=== PATIENT | female | born 1950 | race Caucasian/White ===

== ENCOUNTER → 2018-04-09 | Outpatient (CLI) | payer OTHER ==
[~2018-04-09] MED LIST: AMLODIPINE BESY10 MG PO; COZAAR 50 MG TA50 M2 PO; FLEXERIL PO; TRAMADOL 50 MG50 MG PO
== END ==
LOC: M.RAD 10:00
DX: Z12.31 Encounter for screening mammogram for malignant neoplasm of breast (principal)

== ENCOUNTER 2020-07-26 22:08 | Emergency (ER) | payer MEDICARE ==
[~2020-07-26] VITALS: Ht 157.5 cm; Wt 102.1 kg
[2020-07-26] MEDS ORDERED: VOLTAREN GEL 1100 G1 TOP (23:38)
[2020-07-26] MEDS ORDERED: MELOXICAM15 MG PO (23:38)
[2020-07-26 23:50] VITALS: BP 180/92
== END 2020-07-26 23:50 | disposition home or self-care (01) ==
LOC: M.ERS 22:08
DX: M77.8 Other enthesopathies, not elsewhere classified (principal); M06.9 Rheumatoid arthritis, unspecified; Z91.040 Latex allergy status; Z88.8 Allergy status to other drugs, medicaments and biological substances; I10 Essential (primary) hypertension

== ENCOUNTER → 2020-08-02 | Outpatient (CLI) | payer OTHER ==
[~2020-08-02] MED LIST changes: +MELOXICAM15 MG PO; +VOLTAREN GEL 1100 G1 TOP
== END ==
LOC: M.MRI 13:16
PROVIDERS: ATTEND Nurse Practitioner Family
DX: M79.642 Pain in left hand (principal)